=== PATIENT | female | born 1945 | race Caucasian/White ===

== ENCOUNTER 2018-06-04 05:52 | Day surgery (SDC) | payer OTHER ==
[~2018-06-04 05:52] MED LIST: ASA81 MG PO; COZAAR100 MG PO; EXELON1 EACH TD; GABAPENTIN400 MG PO; GLIMEPIRIDE2 MG PO; NORVASC5 MG PO; SINGULAIR10 MG PO; WELLBUTRIN XL150 M1 PO; ZOCOR20 MG PO
[2018-06-04] MEDS ORDERED: MACROBID 100 M100 MG PO (11:06)
[2018-06-04] MEDS ORDERED: ULTRACET PO (11:07)
== END 2018-06-04 13:20 | disposition home or self-care (01) ==
LOC: CIR.AMB 05:52
DX: N81.3 Complete uterovaginal prolapse (principal)